=== PATIENT | male | born 1950 | race Caucasian/White ===

== ENCOUNTER 2016-09-05 19:46 | Emergency (ER) | payer OTHER ==
[~2016-09-05] VITALS: Ht 175.3 cm; Wt 69.8 kg
[2016-09-05] MEDS ORDERED: ROBITUSSIN AC,T10 ML PO (21:11)
[2016-09-05] MEDS ORDERED: ZITHROMAX Z-PA250 MG PO (21:11)
[2016-09-05] MEDS ORDERED: MEDROL DOSEPAK4 MG PO (21:11)
[2016-09-05 22:00] VITALS: BP 145/75
== END 2016-09-05 22:11 | disposition home or self-care (01) ==
LOC: EXP 19:46 → EME 19:46 → EXP 22:11
DX: J20.9 Acute bronchitis, unspecified (principal); F17.200 Nicotine dependence, unspecified, uncomplicated
CPT/HCPCS: 71020; 99281; 99284

== ENCOUNTER 2016-10-09 19:18 | Emergency (ER) | payer OTHER ==
[~2016-10-09] VITALS: Ht 175.3 cm; Wt 54.5 kg
[~2016-10-09 19:18] MED LIST: MEDROL DOSEPAK4 MG PO; ROBITUSSIN AC,T10 ML PO; ZITHROMAX Z-PA250 MG PO
[2016-10-09 19:45] LABS: ADD MIUA? YES; BILIRUBIN NEGATIVE; BLOOD SMALL; COLOR YELLOW ((YELLOW)); GLUCOSE (STRIP) NEGATIVE; KETONES 20; LEUKOCYTES NEGATIVE; NITRITE NEGATIVE; PROTEIN (STRIP) 30; SPECIFIC GRAVITY 1.027 (1.000-1.030)
[2016-10-09 19:49] LABS: HEMATOCRIT 43.7 % (38.0-50.0); MCH 30.3 PG (29.0-34.0); MCHC 32.7 G/DL (30.0-36.0); MCV 92.6 FL (86-99); MEAN PLAT.VOLUME 9.9 uM^3 (9.0-12.4); PLATELET COUNT 201 K/uL (156-360); RBC DIS.WIDTH-CV 12.6 % (11.8-14.6); RBC DIS.WIDTH-SD 43.4 % (39-53); RED BLOOD COUNT 4.72 M/uL (4.00-5.50); WHITE BLOOD COUNT 6.8 K/uL (4.1-10.2)
[2016-10-09 19:57] LABS: BACTERIA NONE SEEN /HPF; EPITHELIAL CELLS RARE /HPF; GRANULAR CASTS 0-5 /LPF; HYALINE CASTS 0-5 /LPF; MUCUS TRACE /LPF; UCUL ADDED? NO; WHITE BLOOD CELLS 0-5 /HPF (0-5)
[2016-10-09 20:03] LABS: CHLORIDE 108 mEq/L (99-109); POTASSIUM 3.4 mEq/L (3.7-5.4); SODIUM 141 mEq/L (136-147)
[2016-10-09 20:06] LABS: GLUCOSE 100 mg/dL (70-99)
[2016-10-09 20:07] LABS: ANION GAP 10 MEQ/L (2-14); TOTAL BILIRUBIN 0.3 mg/dL (0.0-1.0)
[2016-10-09 20:09] LABS: ALKALINE PHOSPHATASE 73 IU/L (3-129); GFR ESTIMATE (CALCULATED) > 59 mL/min/
[2016-10-09 20:10] LABS: UREA NITROGEN (BUN) 19 mg/dL (9-23)
[2016-10-09 20:40] LABS: LIPASE 14 U/L (1.0-51.0)
[2016-10-09 20:53] LABS: MAGNESIUM 2.4 mg/dL (1.3-2.7)
[2016-10-09 21:10] LABS: INTACT PARATHYROID HORMONE 60 pg/mL (10-69)
[2016-10-09] MEDS ORDERED: NAPROSYN375 MG PO (22:28)
[2016-10-09 23:12] VITALS: BP 148/88
== END 2016-10-09 23:13 | disposition home or self-care (01) ==
LOC: EME 19:18
PROVIDERS: Emergency Medicine
DX: E83.52 Hypercalcemia (principal); R10.32 Left lower quadrant pain; S33.5XXA Sprain of ligaments of lumbar spine, initial encounter; X58.XXXA Exposure to other specified factors, initial encounter; Y93.9 Activity, unspecified; J44.9 Chronic obstructive pulmonary disease, unspecified; F17.200 Nicotine dependence, unspecified, uncomplicated; R31.9 Hematuria, unspecified
CPT/HCPCS: 74176; 80053; 81003; 82330; 83690; 83735; 83970; 84100; 84443; 85027; 99281; 99285; J1885; J7030

== ENCOUNTER 2016-10-10 15:38 | Emergency (ER) | payer OTHER ==
[~2016-10-10] VITALS: Ht 175.3 cm; Wt 67.3 kg
[~2016-10-10 15:38] MED LIST changes: +NAPROSYN375 MG PO
[2016-10-10 16:55] LABS: ADD MIUA? NO; BILIRUBIN NEGATIVE; BLOOD NEGATIVE; COLOR YELLOW ((YELLOW)); GLUCOSE (STRIP) NEGATIVE; KETONES 20; LEUKOCYTES NEGATIVE; NITRITE NEGATIVE; PROTEIN (STRIP) NEGATIVE; SPECIFIC GRAVITY 1.011 (1.000-1.030); UROBILINOGEN 0.2 MG/DL (0.2-1.0)
[2016-10-10 16:56] LABS: HEMATOCRIT 43.8 % (38.0-50.0); MCH 29.8 PG (29.0-34.0); MCHC 32.2 G/DL (30.0-36.0); MCV 92.6 FL (86-99); MEAN PLAT.VOLUME 9.7 uM^3 (9.0-12.4); PLATELET COUNT 163 K/uL (156-360); RBC DIS.WIDTH-CV 12.6 % (11.8-14.6); RBC DIS.WIDTH-SD 43.1 % (39-53); RED BLOOD COUNT 4.73 M/uL (4.00-5.50); WHITE BLOOD COUNT 5.4 K/uL (4.1-10.2)
[2016-10-10 17:04] LABS: AMPHETAMINE PRESUMPTIVE POSITIVE (500 ng/mL); BARBITURATES NEGATIVE (200 ng/mL); BENZODIAZEPINES NEGATIVE (150 ng/mL); COCAINE NEGATIVE (150 ng/mL); INTERNAL CONTROLS VALID? YES; METHADONE NEGATIVE (200 ng/mL); METHAMPHETAMINE NEGATIVE (500 ng/mL); OPIATES (MORPHINE) NEGATIVE (100 ng/mL); OXYCODONE NEGATIVE (100 ng/mL); PHENCYCLIDINE NEGATIVE (25 ng/mL); PROPOXYPHENE NEGATIVE (300 ng/mL); THC CANNABINOIDS NEGATIVE (50 ng/mL); TRICYCLIC ANTIDEPRESSANTS NEGATIVE (300 ng/mL)
[2016-10-10 17:05] LABS: ADD MEDTOX COMMENT Y
[2016-10-10 17:06] LABS: CHLORIDE 108 mEq/L (99-109); POTASSIUM 3.2 mEq/L (3.7-5.4); SODIUM 140 mEq/L (136-147)
[2016-10-10 17:08] LABS: GLUCOSE 84 mg/dL (70-99)
[2016-10-10 17:09] LABS: ANION GAP 9 MEQ/L (2-14)
[2016-10-10 17:10] LABS: TOTAL BILIRUBIN 0.4 mg/dL (0.0-1.0)
[2016-10-10 17:11] LABS: SERUM ETHYL ALCOHOL < 10 mg/dL
[2016-10-10 17:12] LABS: ALKALINE PHOSPHATASE 64 IU/L (3-129); GFR ESTIMATE (CALCULATED) > 59 mL/min/
[2016-10-10 17:13] LABS: UREA NITROGEN (BUN) 15 mg/dL (9-23)
[2016-10-10 18:21] LABS: INTACT PARATHYROID HORMONE 87 pg/mL (10-69)
[2016-10-11 02:17] LABS: CHLORIDE 112 mEq/L (99-109); POTASSIUM 3.8 mEq/L (3.7-5.4); SODIUM 140 mEq/L (136-147)
[2016-10-11 02:19] LABS: GLUCOSE 81 mg/dL (70-99)
[2016-10-11 02:20] LABS: ANION GAP 5 MEQ/L (2-14)
[2016-10-11 02:23] LABS: GFR ESTIMATE (CALCULATED) > 59 mL/min/
[2016-10-11 02:24] LABS: UREA NITROGEN (BUN) 12 mg/dL (9-23)
[2016-10-11 05:05] VITALS: BP 112/70
== END 2016-10-11 05:06 ==
LOC: EME 15:38
PROVIDERS: Emergency Medicine
DX: F33.2 Major depressive disorder, recurrent severe without psychotic features (principal); R45.851 Suicidal ideations; E83.52 Hypercalcemia; R41.83 Borderline intellectual functioning; F17.200 Nicotine dependence, unspecified, uncomplicated
CPT/HCPCS: 71020; 80048; 80053; 81003; 82310; 82330; 83970; 84999; 85027; 90837; 93005; 99281; 99285; G0480; J7030

== ENCOUNTER 2016-12-05 02:10 | Inpatient (IN) | payer OTHER ==
[~2016-12-05] VITALS: Ht 175.3 cm; Wt 68.1 kg
[2016-12-05 03:38] LABS: EOSINOPHIL (%) 3.8 % (0-5); EOSINOPHIL COUNT 0.3 K/uL (0-0.3); HEMATOCRIT 48.2 % (38.0-50.0); IMMATURE GRANULOCYTE (%) 0.1 % (0.0-0.7); INSTRUMENT ABS NEUTROPHIL CT 4.7 K/uL; LYMPHOCYTE COUNT 2.2 K/uL (1.0-2.8); MCH 30.1 PG (29.0-34.0); MCV 91.1 FL (86-99); MONOCYTE (%) 6.4 % (3-12); MONOCYTE COUNT 0.5 K/uL (0-0.8); NEUTROPHIL (%) 60.9 % (45-76); NEUTROPHIL COUNT 4.7 K/uL (1.8-6.4); RBC DIS.WIDTH-CV 12.6 % (11.8-14.6); RBC DIS.WIDTH-SD 42.3 % (39-53); RED BLOOD COUNT 5.29 M/uL (4.00-5.50); WHITE BLOOD COUNT 7.7 K/uL (4.1-10.2)
[2016-12-05 04:17] LABS: CHLORIDE 105 mEq/L (99-109); POTASSIUM 3.7 mEq/L (3.7-5.4); SODIUM 139 mEq/L (136-147)
[2016-12-05 04:20] LABS: GLUCOSE 128 mg/dL (70-99)
[2016-12-05 04:21] LABS: ANION GAP 9 MEQ/L (2-14)
[2016-12-05 04:22] LABS: TOTAL BILIRUBIN 0.5 mg/dL (0.0-1.0)
[2016-12-05 04:23] LABS: ALKALINE PHOSPHATASE 74 IU/L (3-129); GFR ESTIMATE (CALCULATED) > 59 mL/min/
[2016-12-05 04:33] LABS: UREA NITROGEN (BUN) 16 mg/dL (9-23)
[2016-12-05 04:37] LABS: PLAT.SUFFICIENCY DECREASED; PLATELET CLUMPS PRESENT - PLATELET COUNTS APPEARS DECREASED
[2016-12-05 07:24] LABS: TROP-I INTERPRETATION POSITIVE; TROPONIN-I 1.25 ng/mL (0.0-0.30)
[2016-12-05 08:30] VITALS: BP 139/73
[2016-12-05 08:48] LABS: INTACT PARATHYROID HORMONE 40 pg/mL (10-69)
[2016-12-05 09:46] LABS: PROTHROMBIN TIME 10.3 (9.2-11.2); PTT 27.4 (25-32)
[2016-12-05 12:25] VITALS: BP 115/72
[2016-12-05 12:55] LABS: TROP-I INTERPRETATION NEGATIVE; TROPONIN-I < 0.01 ng/mL (0.0-0.30)
[2016-12-05 16:16] VITALS: BP 103/57
[2016-12-05] MEDS ORDERED: LEXAPRO10 MG PO (16:47)
[2016-12-05] MEDS ORDERED: MELATIN3 MG PO (16:47)
[2016-12-05 17:11] LABS: ADD MIUA? NO; BILIRUBIN NEGATIVE; BLOOD NEGATIVE; COLOR YELLOW ((YELLOW)); GLUCOSE (STRIP) >=500; KETONES NEGATIVE; LEUKOCYTES NEGATIVE; NITRITE NEGATIVE; PROTEIN (STRIP) NEGATIVE; SPECIFIC GRAVITY 1.014 (1.000-1.030); UCUL ADDED? NO; UROBILINOGEN 0.2 MG/DL (0.2-1.0)
[2016-12-05 19:48] VITALS: BP 117/71
[2016-12-05 23:05] VITALS: BP 104/59
[2016-12-06 04:50] VITALS: BP 142/78
[2016-12-06 06:10] LABS: HEMATOCRIT 39.6 % (38.0-50.0); MCH 30.2 PG (29.0-34.0); MCHC 32.8 G/DL (30.0-36.0); MCV 92.1 FL (86-99); MEAN PLAT.VOLUME 10.6 uM^3 (9.0-12.4); PLATELET COUNT 132 K/uL (156-360); RBC DIS.WIDTH-CV 12.9 % (11.8-14.6); RBC DIS.WIDTH-SD 43.8 % (39-53); WHITE BLOOD COUNT 12.7 K/uL (4.1-10.2)
[2016-12-06 06:36] LABS: ANION GAP 4 MEQ/L (2-14); CHLORIDE 113 MEQ/L (99-109); GFR ESTIMATE (CALCULATED) > 59 mL/min/; GLUCOSE 134 mg/dL (70-99); SAMPLE HEMOLYSIS CHECK 0; SAMPLE ICTERIC CHECK 0; SAMPLE LIPEMIA CHECK 0; SODIUM 139 MEQ/L (136-147); UREA NITROGEN (BUN) 15 mg/dL (9-23)
[2016-12-06 06:41] LABS: POTASSIUM 4.5 MEQ/L (3.7-5.4)
[2016-12-06 07:25] VITALS: BP 124/73
[2016-12-06 11:48] VITALS: BP 135/87
[2016-12-06 16:05] VITALS: BP 131/76
[2016-12-06 20:03] VITALS: BP 120/71
[2016-12-07] VITALS (8 sets, daily range): BP systolic 113–169; BP diastolic 63–97
[2016-12-07 05:51] LABS: EOSINOPHIL (%) 0.1 % (0-5); HEMATOCRIT 39.2 % (38.0-50.0); IMMATURE GRANULOCYTE (%) 0.6 % (0.0-0.7); IMMATURE GRANULOCYTE COUNT 0.1 K/uL; INSTRUMENT ABS NEUTROPHIL CT 7.8 K/uL; LYMPHOCYTE COUNT 1.7 K/uL (1.0-2.8); MCH 30.6 PG (29.0-34.0); MCHC 32.9 G/DL (30.0-36.0); MCV 93.1 FL (86-99); MEAN PLAT.VOLUME 10.5 uM^3 (9.0-12.4); MONOCYTE (%) 6.8 % (3-12); MONOCYTE COUNT 0.7 K/uL (0-0.8); NEUTROPHIL (%) 75.8 % (45-76); NEUTROPHIL COUNT 7.8 K/uL (1.8-6.4); PLATELET COUNT 134 K/uL (156-360); RBC DIS.WIDTH-CV 13.1 % (11.8-14.6); RED BLOOD COUNT 4.21 M/uL (4.00-5.50); WHITE BLOOD COUNT 10.2 K/uL (4.1-10.2)
[2016-12-07 06:41] LABS: ANION GAP 2 MEQ/L (2-14); CHLORIDE 113 MEQ/L (99-109); GFR ESTIMATE (CALCULATED) > 59 mL/min/; GLUCOSE 118 mg/dL (70-99); POTASSIUM 4.1 MEQ/L (3.7-5.4); SAMPLE HEMOLYSIS CHECK 0; SAMPLE ICTERIC CHECK 0; SAMPLE LIPEMIA CHECK 0; SODIUM 139 MEQ/L (136-147); UREA NITROGEN (BUN) 15 mg/dL (9-23)
[2016-12-07 17:08] LABS: UR CALCIUM CONCENTRATION < 5.0 MG/DL; UR CREATININE CONCENTRATION 23.3 MG/DL
[2016-12-08 03:30] VITALS: BP 126/70
[2016-12-08 04:28] VITALS: BP 157/79
[2016-12-08 06:58] LABS: HEMATOCRIT 40.6 % (38.0-50.0); MCH 30.4 PG (29.0-34.0); MCHC 32.8 G/DL (30.0-36.0); MCV 92.9 FL (86-99); MEAN PLAT.VOLUME 10.6 uM^3 (9.0-12.4); PLATELET COUNT 123 K/uL (156-360); RBC DIS.WIDTH-CV 12.8 % (11.8-14.6); RED BLOOD COUNT 4.37 M/uL (4.00-5.50); WHITE BLOOD COUNT 6.7 K/uL (4.1-10.2)
[2016-12-08 07:22] LABS: ANION GAP 6 MEQ/L (2-14); CHLORIDE 110 MEQ/L (99-109); GFR ESTIMATE (CALCULATED) > 59 mL/min/; GLUCOSE 113 mg/dL (70-99); SAMPLE HEMOLYSIS CHECK 0; SAMPLE ICTERIC CHECK 0; SAMPLE LIPEMIA CHECK 0; SODIUM 140 MEQ/L (136-147); UREA NITROGEN (BUN) 12 mg/dL (9-23)
[2016-12-08 08:06] VITALS: BP 150/86
[2016-12-08] MEDS ORDERED: VITAMIN D-3 401 EACH PO (11:09)
[2016-12-08] MEDS ORDERED: NEUTRA-PHOS,1 PACKET PO (11:13)
[2016-12-08] MEDS ORDERED: PREDNISONE10 MG PO (11:16)
[2016-12-08 11:27] VITALS: BP 159/92
[2016-12-08] MEDS ORDERED: NICOTINE PATCH1 EAC2 TD (11:35)
[2016-12-09 13:57] LABS: IFE GEL NO. 80-3
[2016-12-10 12:31] LABS: URINE TOTAL PROTEIN < 4 MG/DL (0-10)
== END 2016-12-08 12:50 | disposition home or self-care (01) | DRG 641 ==
LOC: EME 02:10 → EDOF 06:00 → 5SOUTH 07:38 → EDOF 07:38 → 4EAST 08:17 → 5SOUTH 12-07 01:38
PROVIDERS: Emergency Medicine; Hospitalist; Internal Medicine; Nurse Practitioner Family
DX: E83.52 Hypercalcemia (principal); J44.1 Chronic obstructive pulmonary disease with (acute) exacerbation; R45.851 Suicidal ideations; F17.210 Nicotine dependence, cigarettes, uncomplicated; E83.39 Other disorders of phosphorus metabolism; E55.9 Vitamin D deficiency, unspecified; F32.9 Major depressive disorder, single episode, unspecified; I10 Essential (primary) hypertension
CPT/HCPCS: 71020; 78072; 80048; 80053; 80069; 81003; 81050; 82040; 82306; 82330; 82340; 82570; 83970; 84100; 84484; 85025; 85027; 85610; 85730; 86334; 86335; 87070; 87205; 93005; 94644; 99202; 99281; 99285; A9500; A9512; J1940; J2430; J2930; J7030; J7050; J7512

== ENCOUNTER 2017-01-31 21:12 | Emergency (ER) | payer OTHER ==
[~2017-01-31] VITALS: Ht 177.8 cm; Wt 63.4 kg
[~2017-01-31 21:12] MED LIST changes: +LEXAPRO10 MG PO; +MELATIN3 MG PO; +NEUTRA-PHOS,1 PACKET PO; +NICOTINE PATCH1 EAC2 TD; +PREDNISONE10 MG PO; +VITAMIN D-3 401 EACH PO
[2017-01-31] MEDS ORDERED: LEXAPRO10 MG PO (22:06)
[2017-01-31 22:26] VITALS: BP 148/105
== END 2017-01-31 22:27 | disposition home or self-care (01) ==
LOC: EME 21:12
DX: F32.9 Major depressive disorder, single episode, unspecified (principal); Z76.0 Encounter for issue of repeat prescription; I10 Essential (primary) hypertension; F17.200 Nicotine dependence, unspecified, uncomplicated; Z85.038 Personal history of other malignant neoplasm of large intestine
CPT/HCPCS: 99281; 99283

== ENCOUNTER 2017-02-18 20:31 | Observation (INO) | payer OTHER ==
[~2017-02-18] VITALS: Ht 175.3 cm; Wt 67.5 kg
[2017-02-18 21:07] LABS: ADD MIUA? NO; BILIRUBIN NEGATIVE; BLOOD NEGATIVE; COLOR YELLOW ((YELLOW)); GLUCOSE (STRIP) NEGATIVE; KETONES NEGATIVE; LEUKOCYTES NEGATIVE; NITRITE NEGATIVE; PROTEIN (STRIP) NEGATIVE; UCUL ADDED? NO
[2017-02-18 21:19] LABS: MCH 30.8 PG (29.0-34.0); MCHC 33.2 G/DL (30.0-36.0); MCV 92.8 FL (86-99); PLATELET COUNT 159 K/uL (156-360); RBC DIS.WIDTH-CV 13.1 % (11.8-14.6); RBC DIS.WIDTH-SD 45.1 % (39-53); RED BLOOD COUNT 4.42 M/uL (4.00-5.50); WHITE BLOOD COUNT 8.2 K/uL (4.1-10.2)
[2017-02-18 21:29] LABS: CHLORIDE 111 mEq/L (99-109); SODIUM 143 mEq/L (136-147)
[2017-02-18 21:31] LABS: GLUCOSE 98 mg/dL (70-99)
[2017-02-18 21:32] LABS: ANION GAP 5 MEQ/L (2-14)
[2017-02-18 21:33] LABS: TOTAL BILIRUBIN 0.3 mg/dL (0.0-1.0)
[2017-02-18 21:34] LABS: ALKALINE PHOSPHATASE 63 IU/L (3-129)
[2017-02-18 21:35] LABS: GFR ESTIMATE (CALCULATED) > 59 mL/min/
[2017-02-18 21:36] LABS: UREA NITROGEN (BUN) 13 mg/dL (9-23)
[2017-02-18 23:10] LABS: MAGNESIUM 2.6 mg/dL (1.3-2.7)
[2017-02-18 23:17] LABS: LIPASE 16 U/L (1.0-51.0)
[2017-02-19] MEDS ORDERED: PRINIVIL20 MG PO (03:49)
[2017-02-19 04:58] VITALS: BP 132/81
[2017-02-19 07:43] LABS: INTACT PARATHYROID HORMONE 165 pg/mL (10-69)
[2017-02-19 08:38] VITALS: BP 128/72
[2017-02-19 12:34] VITALS: BP 131/65
[2017-02-19 13:53] LABS: ANION GAP 2 MEQ/L (2-14); CHLORIDE 110 MEQ/L (99-109); GFR ESTIMATE (CALCULATED) > 59 mL/min/; GLUCOSE 106 mg/dL (70-99); POTASSIUM 4.6 MEQ/L (3.7-5.4); SAMPLE HEMOLYSIS CHECK 0; SAMPLE ICTERIC CHECK 0; SAMPLE LIPEMIA CHECK 0; SODIUM 138 MEQ/L (136-147); UREA NITROGEN (BUN) 13 mg/dL (9-23)
[2017-02-19 16:00] VITALS: BP 116/66
[2017-02-19 19:00] VITALS: BP 126/79
[2017-02-20 00:14] VITALS: BP 133/75
[2017-02-20 04:17] VITALS: BP 134/76
[2017-02-20 07:57] VITALS: BP 131/83
[2017-02-20 10:01] LABS: ANION GAP 2 MEQ/L (2-14); CHLORIDE 109 MEQ/L (99-109); GFR ESTIMATE (CALCULATED) > 59 mL/min/; GLUCOSE 94 mg/dL (70-99); POTASSIUM 4.1 MEQ/L (3.7-5.4); SAMPLE HEMOLYSIS CHECK 0; SAMPLE ICTERIC CHECK 0; SAMPLE LIPEMIA CHECK 0; SODIUM 139 MEQ/L (136-147); UREA NITROGEN (BUN) 13 mg/dL (9-23)
[2017-02-20 12:06] VITALS: BP 124/68
[2017-02-20 16:12] VITALS: BP 139/84
[2017-02-20] MEDS ORDERED: NAPROSYN375 MG PO (16:14)
[2017-02-20] MEDS ORDERED: TYLENOL EXTRA500 MG PO (16:17)
[2017-02-20] MEDS ORDERED: [UNRECOGNIZED DRUG - OTHER] (16:20)
[2017-02-20 20:00] VITALS: BP 141/72
[2017-02-21] VITALS: BP 138/83
[2017-02-21 08:32] LABS: ANION GAP 4 MEQ/L (2-14); CHLORIDE 112 MEQ/L (99-109); GFR ESTIMATE (CALCULATED) > 59 mL/min/; GLUCOSE 102 mg/dL (70-99); POTASSIUM 4.5 MEQ/L (3.7-5.4); SAMPLE HEMOLYSIS CHECK 0; SAMPLE ICTERIC CHECK 0; SAMPLE LIPEMIA CHECK 0; SODIUM 142 MEQ/L (136-147); UREA NITROGEN (BUN) 14 mg/dL (9-23)
[2017-02-21 08:45] VITALS: BP 158/84
[2017-02-21 10:18] VITALS: BP 169/83
[2017-02-21] MEDS ORDERED: TAMSULOSIN HCL0.4 MG PO (11:00)
== END 2017-02-21 14:04 | disposition home or self-care (01) ==
LOC: EME 20:31 → 5WEST 02-19 02:37 → EDOF 02-19 02:37 → ENRESERV 02-19 02:38 → 5WEST 02-19 04:09
PROVIDERS: Emergency Medicine; Internal Medicine; Nurse Practitioner Family
DX: E21.0 Primary hyperparathyroidism (principal); E55.9 Vitamin D deficiency, unspecified; E83.39 Other disorders of phosphorus metabolism; J44.9 Chronic obstructive pulmonary disease, unspecified; N40.0 Benign prostatic hyperplasia without lower urinary tract symptoms; I70.202 Unspecified atherosclerosis of native arteries of extremities, left leg; M25.552 Pain in left hip; N20.0 Calculus of kidney; F17.200 Nicotine dependence, unspecified, uncomplicated; I10 Essential (primary) hypertension; Z85.038 Personal history of other malignant neoplasm of large intestine; F32.9 Major depressive disorder, single episode, unspecified; E86.0 Dehydration
CPT/HCPCS: 71010; 74177; 80048; 80053; 81003; 82308 90; 83690; 83735; 83970; 84100; 85027; 93005; 99281; 99285; G0103; G0378; J1650; J2430; J7030; J7040; J7050

== ENCOUNTER 2017-02-22 18:43 | Emergency (ER) | payer OTHER ==
[~2017-02-22] VITALS: Ht 175.3 cm; Wt 64.5 kg
[~2017-02-22 18:43] MED LIST changes: +PRINIVIL20 MG PO; +TAMSULOSIN HCL0.4 MG PO; +TYLENOL EXTRA500 MG PO; +[UNRECOGNIZED DRUG - OTHER]
[2017-02-22 22:15] LABS: EOSINOPHIL (%) 6.4 % (0-5); EOSINOPHIL COUNT 0.3 K/uL (0-0.3); HEMATOCRIT 38.2 % (38.0-50.0); IMMATURE GRANULOCYTE (%) 0.4 % (0.0-0.7); INSTRUMENT ABS NEUTROPHIL CT 2.4 K/uL; LYMPHOCYTE COUNT 1.4 K/uL (1.0-2.8); MCH 30.6 PG (29.0-34.0); MCHC 32.7 G/DL (30.0-36.0); MCV 93.4 FL (86-99); MEAN PLAT.VOLUME 9.8 uM^3 (9.0-12.4); MONOCYTE (%) 8.1 % (3-12); MONOCYTE COUNT 0.4 K/uL (0-0.8); NEUTROPHIL (%) 53.7 % (45-76); NEUTROPHIL COUNT 2.4 K/uL (1.8-6.4); PLATELET COUNT 132 K/uL (156-360); RBC DIS.WIDTH-CV 13.1 % (11.8-14.6); RED BLOOD COUNT 4.09 M/uL (4.00-5.50); WHITE BLOOD COUNT 4.6 K/uL (4.1-10.2)
[2017-02-22 22:23] LABS: CHLORIDE 109 mEq/L (99-109); POTASSIUM 3.8 mEq/L (3.7-5.4); SODIUM 141 mEq/L (136-147)
[2017-02-22 22:25] LABS: GLUCOSE 88 mg/dL (70-99)
[2017-02-22 22:26] LABS: ANION GAP 8 MEQ/L (2-14)
[2017-02-22 22:29] LABS: ALKALINE PHOSPHATASE 70 IU/L (3-129); GFR ESTIMATE (CALCULATED) > 59 mL/min/
[2017-02-22 22:30] LABS: UREA NITROGEN (BUN) 13 mg/dL (9-23)
[2017-02-22 22:32] LABS: TOTAL BILIRUBIN 0.4 mg/dL (0.0-1.0)
[2017-02-22 23:33] LABS: ADD MIUA? NO; BILIRUBIN NEGATIVE; BLOOD NEGATIVE; COLOR YELLOW ((YELLOW)); GLUCOSE (STRIP) NEGATIVE; KETONES 5; LEUKOCYTES NEGATIVE; NITRITE NEGATIVE; PROTEIN (STRIP) NEGATIVE; SPECIFIC GRAVITY 1.021 (1.000-1.030); UCUL ADDED? NO; UROBILINOGEN 0.2 MG/DL (0.2-1.0)
[2017-02-23] MEDS ORDERED: PERCOCET 5/31 TABLET PO (00:48)
[2017-02-23] MEDS ORDERED: CILOSTAZOL100 MG PO (00:48)
[2017-02-23 01:17] VITALS: BP 120/87
== END 2017-02-23 01:18 | disposition home or self-care (01) ==
LOC: EME 18:43
PROVIDERS: Emergency Medicine
DX: I73.9 Peripheral vascular disease, unspecified (principal); E83.52 Hypercalcemia; M54.5 Low back pain; J44.9 Chronic obstructive pulmonary disease, unspecified; I10 Essential (primary) hypertension; F17.200 Nicotine dependence, unspecified, uncomplicated; Z85.038 Personal history of other malignant neoplasm of large intestine
CPT/HCPCS: 72131; 80053; 81003; 85025; 93926; 99281; 99284

== ENCOUNTER 2017-03-03 19:16 | Emergency (ER) | payer OTHER ==
[~2017-03-03] VITALS: Ht 175.3 cm; Wt 62.9 kg
[~2017-03-03 19:16] MED LIST changes: +CILOSTAZOL100 MG PO; +PERCOCET 5/31 TABLET PO
[2017-03-03] MEDS ORDERED: FLEXERIL10 MG PO (22:07)
[2017-03-03] MEDS ORDERED: MOTRIN600 MG PO (22:07)
[2017-03-03] MEDS ORDERED: LIDODERM 5% P1 PATCH TD (22:07)
[2017-03-03 22:59] VITALS: BP 144/88
== END 2017-03-03 23:00 | disposition home or self-care (01) ==
LOC: EME 19:16
DX: M54.5 Low back pain (principal); F17.200 Nicotine dependence, unspecified, uncomplicated
CPT/HCPCS: 99281; 99284; J1885

== ENCOUNTER → 2017-03-28 | Outpatient (CLI) | payer MEDICARE ==
[~2017-03-28] MED LIST changes: +FLEXERIL10 MG PO; +LIDODERM 5% P1 PATCH TD; +MOTRIN600 MG PO; +XANAX1 MG PO; -[UNRECOGNIZED DRUG - OTHER]
== END | disposition home or self-care (01) ==
LOC: CDC 11:45
DX: Z01.810 Encounter for preprocedural cardiovascular examination (principal)
CPT/HCPCS: 93000

== ENCOUNTER 2017-03-29 13:06 | Observation (INO) | payer OTHER ==
[~2017-03-29] VITALS: Ht 175.3 cm; Wt 63.3 kg
[~2017-03-29 13:06] MED LIST changes: -XANAX1 MG PO
[2017-03-29 13:59] LABS: EOSINOPHIL (%) 5.3 % (0-5); EOSINOPHIL COUNT 0.4 K/uL (0-0.3); HEMATOCRIT 42.4 % (38.0-50.0); IMMATURE GRANULOCYTE (%) 0.3 % (0.0-0.7); INSTRUMENT ABS NEUTROPHIL CT 4.6 K/uL; LYMPHOCYTE COUNT 2.2 K/uL (1.0-2.8); MCH 31.1 PG (29.0-34.0); MCV 94.2 FL (86-99); MEAN PLAT.VOLUME 10.3 uM^3 (9.0-12.4); MONOCYTE (%) 6.3 % (3-12); MONOCYTE COUNT 0.5 K/uL (0-0.8); NEUTROPHIL (%) 59.1 % (45-76); NEUTROPHIL COUNT 4.6 K/uL (1.8-6.4); PLATELET COUNT 156 K/uL (156-360); RBC DIS.WIDTH-CV 12.6 % (11.8-14.6); RBC DIS.WIDTH-SD 43.9 % (39-53); WHITE BLOOD COUNT 7.8 K/uL (4.1-10.2)
[2017-03-29 14:07] LABS: CHLORIDE 108 mEq/L (99-109); POTASSIUM 4.3 mEq/L (3.7-5.4); SODIUM 141 mEq/L (136-147)
[2017-03-29 14:08] LABS: MAGNESIUM 2.8 mg/dL (1.3-2.7)
[2017-03-29 14:09] LABS: GLUCOSE 93 mg/dL (70-99)
[2017-03-29 14:11] LABS: ANION GAP 7 MEQ/L (2-14); TOTAL BILIRUBIN 0.3 mg/dL (0.0-1.0)
[2017-03-29 14:13] LABS: ALKALINE PHOSPHATASE 57 IU/L (3-129); GFR ESTIMATE (CALCULATED) > 59 mL/min/
[2017-03-29 14:14] LABS: UREA NITROGEN (BUN) 16 mg/dL (9-23)
[2017-03-29 14:16] LABS: CREATINE KINASE 51 IU/L (1-294); TOTAL CK 51 IU/L (1-294)
[2017-03-29 14:19] LABS: TROP-I INTERPRETATION NEGATIVE; TROPONIN-I 0.01 ng/mL (0.0-0.30)
[2017-03-29 14:22] LABS: CK-MB 0.9 ng/mL (0.0-4.9)
[2017-03-29] MEDS ORDERED: XANAX1 MG PO (16:30)
[2017-03-29 17:43] VITALS: BP 140/77
[2017-03-29 19:00] VITALS: BP 132/73
[2017-03-29 21:06] LABS: TROP-I INTERPRETATION NEGATIVE; TROPONIN-I 0.01 ng/mL (0.0-0.30)
[2017-03-30 00:05] VITALS: BP 114/68
[2017-03-30 03:26] LABS: TROP-I INTERPRETATION NEGATIVE; TROPONIN-I < 0.01 ng/mL (0.0-0.30)
[2017-03-30 04:32] VITALS: BP 117/70
[2017-03-30 05:22] LABS: HEMATOCRIT 39.4 % (38.0-50.0); MCH 31.1 PG (29.0-34.0); MCHC 32.5 G/DL (30.0-36.0); MCV 95.6 FL (86-99); MEAN PLAT.VOLUME 10.6 uM^3 (9.0-12.4); PLATELET COUNT 137 K/uL (156-360); RBC DIS.WIDTH-CV 12.9 % (11.8-14.6); RBC DIS.WIDTH-SD 45.5 % (39-53); RED BLOOD COUNT 4.12 M/uL (4.00-5.50); WHITE BLOOD COUNT 5.2 K/uL (4.1-10.2)
[2017-03-30 05:48] LABS: ANION GAP 3 MEQ/L (2-14); CHLORIDE 108 MEQ/L (99-109); GFR ESTIMATE (CALCULATED) > 59 mL/min/; GLUCOSE 91 mg/dL (70-99); POTASSIUM 4.2 MEQ/L (3.7-5.4); SAMPLE HEMOLYSIS CHECK 0; SAMPLE ICTERIC CHECK 0; SAMPLE LIPEMIA CHECK 0; SODIUM 137 MEQ/L (136-147); UREA NITROGEN (BUN) 16 mg/dL (9-23)
[2017-03-30 07:30] VITALS: BP 117/69
[2017-03-30 12:26] VITALS: BP 130/83
[2017-03-30] MEDS ORDERED: TAMSULOSIN HCL0.4 MG PO (14:55)
[2017-03-30 15:51] VITALS: BP 111/73
== END 2017-03-30 17:43 | disposition home or self-care (01) ==
LOC: EME 13:06 → 5WEST 16:08 → EDOF 16:08 → ENRESERV 16:18 → 5WEST 17:41
PROVIDERS: Emergency Medicine; Nurse Practitioner Adult Health
DX: R07.89 Other chest pain (principal); E21.0 Primary hyperparathyroidism; J44.9 Chronic obstructive pulmonary disease, unspecified; I10 Essential (primary) hypertension; F17.210 Nicotine dependence, cigarettes, uncomplicated; I73.9 Peripheral vascular disease, unspecified; R97.20 Elevated prostate specific antigen [PSA]; E55.9 Vitamin D deficiency, unspecified; Z79.82 Long term (current) use of aspirin; Z85.038 Personal history of other malignant neoplasm of large intestine; I25.2 Old myocardial infarction; N40.0 Benign prostatic hyperplasia without lower urinary tract symptoms
CPT/HCPCS: 71020; 71275; 78452; 80048; 80053; 82330; 82550; 82553; 83519 90; 83735; 83883 90; 84100; 84484; 85025; 85027; 93005; 93017; 99281; 99285; A9500; G0378; J2430; J2785; J7030; J7050

== ENCOUNTER 2017-05-09 17:55 | Emergency (ER) | payer OTHER ==
[~2017-05-09] VITALS: Ht 175.3 cm; Wt 62.5 kg
[~2017-05-09 17:55] MED LIST changes: +XANAX1 MG PO
[2017-05-09] MEDS ORDERED: TYLENOL WITH C1 EACH PO (22:41)
[2017-05-09 23:01] VITALS: BP 113/73
== END 2017-05-09 23:09 | disposition home or self-care (01) ==
LOC: EME 17:55
DX: G89.18 Other acute postprocedural pain (principal); R10.32 Left lower quadrant pain; J44.9 Chronic obstructive pulmonary disease, unspecified; I10 Essential (primary) hypertension; K21.9 Gastro-esophageal reflux disease without esophagitis; F31.9 Bipolar disorder, unspecified; F32.9 Major depressive disorder, single episode, unspecified; Z85.038 Personal history of other malignant neoplasm of large intestine; Z87.891 Personal history of nicotine dependence
CPT/HCPCS: 93926; 99281; 99285

== ENCOUNTER 2017-06-21 18:44 | Inpatient (IN) | payer OTHER ==
[~2017-06-21] VITALS: Ht 175.3 cm; Wt 53.0 kg
[~2017-06-21 18:44] MED LIST changes: +TYLENOL WITH C1 EACH PO
[2017-06-21 19:51] LABS: HEMATOCRIT 44.7 % (38.0-50.0); HEMOGLOBIN 14.8 G/DL (12.5-16.6); MCH 30.7 PG (29.0-34.0); MCHC 33.1 G/DL (30.0-36.0); MCV 92.7 FL (86-99); PLATELET COUNT 166 K/uL (156-360); RBC DIS.WIDTH-CV 12.5 % (11.8-14.6); RBC DIS.WIDTH-SD 43.2 % (39-53); RED BLOOD COUNT 4.82 M/uL (4.00-5.50); WHITE BLOOD COUNT 6.5 K/uL (4.1-10.2)
[2017-06-21 20:10] LABS: CHLORIDE 109 mEq/L (99-109); SODIUM 140 mEq/L (136-147)
[2017-06-21 20:12] LABS: GLUCOSE 133 mg/dL (70-99)
[2017-06-21 20:14] LABS: TROP-I INTERPRETATION NEGATIVE; TROPONIN-I < 0.01 ng/mL (0.0-0.30)
[2017-06-21 20:16] LABS: GFR ESTIMATE (CALCULATED) > 59 mL/min/ (58.99-99999)
[2017-06-21 20:17] LABS: UREA NITROGEN (BUN) 17 mg/dL (9-23)
[2017-06-21 21:56] LABS: ALBUMIN 4.6 g/dL (3.2-4.8)
[2017-06-21 21:58] LABS: TOTAL PROTEIN 7.2 g/dL (6.4-8.3)
[2017-06-21 22:00] LABS: TOTAL BILIRUBIN 0.7 mg/dL (0.0-1.0)
[2017-06-21 22:01] LABS: ALKALINE PHOSPHATASE 64 IU/L (3-129)
[2017-06-21 22:04] LABS: ALT (GPT) 7 IU/L (3-49); AST (GOT) 16 IU/L (2-34); DIRECT BILIRUBIN 0.3 mg/dL (0.0-0.3)
[2017-06-21 22:05] LABS: LIPASE 11 U/L (1.0-51.0)
[2017-06-22] MEDS ORDERED: CYCLOBENZAPRINE10 MG PO (01:02)
[2017-06-22 03:22] LABS: TROP-I INTERPRETATION NEGATIVE; TROPONIN-I < 0.01 ng/mL (0.0-0.30)
[2017-06-22 09:08] LABS: CHLORIDE 114 mEq/L (99-109); POTASSIUM 4.2 mEq/L (3.7-5.4); SODIUM 138 mEq/L (136-147)
[2017-06-22 09:09] LABS: MCH 30.8 PG (29.0-34.0); MCHC 32.9 G/DL (30.0-36.0); MCV 93.8 FL (86-99); RBC DIS.WIDTH-CV 12.6 % (11.8-14.6); RBC DIS.WIDTH-SD 43.1 % (39-53); WHITE BLOOD COUNT 4.6 K/uL (4.1-10.2)
[2017-06-22 09:10] LABS: GLUCOSE 113 mg/dL (70-99)
[2017-06-22 09:13] LABS: CREATININE 0.8 mg/dL (0.6-1.3); GFR ESTIMATE (CALCULATED) > 59 mL/min/ (58.99-99999)
[2017-06-22 09:14] LABS: UREA NITROGEN (BUN) 17 mg/dL (9-23)
[2017-06-22 09:19] LABS: TROP-I INTERPRETATION NEGATIVE; TROPONIN-I < 0.01 ng/mL (0.0-0.30)
[2017-06-22 09:26] LABS: HEMOGLOBIN 11.5 G/DL (12.5-16.6); RED BLOOD COUNT 3.73 M/uL (4.00-5.50)
[2017-06-22 09:41] LABS: PLAT.SUFFICIENCY DECREASED; PLATELET CLUMPS PRESENT - PLATELET COUNTS APPEARS DECREASED
[2017-06-22 09:49] LABS: PLATELET COUNT UNABLE TO REPORT K/uL (156-360)
[2017-06-22 15:56] VITALS: BP 109/72
[2017-06-22 20:28] VITALS: BP 112/58
[2017-06-22 23:16] VITALS: BP 100/60
[2017-06-23 04:13] VITALS: BP 95/55
[2017-06-23 05:56] LABS: HEMATOCRIT 35.6 % (38.0-50.0); HEMOGLOBIN 11.5 G/DL (12.5-16.6); MCH 30.3 PG (29.0-34.0); MCHC 32.3 G/DL (30.0-36.0); MCV 93.9 FL (86-99); RBC DIS.WIDTH-CV 12.6 % (11.8-14.6); RBC DIS.WIDTH-SD 43.6 % (39-53); RED BLOOD COUNT 3.79 M/uL (4.00-5.50); WHITE BLOOD COUNT 3.4 K/uL (4.1-10.2)
[2017-06-23 05:59] LABS: PLATELET COUNT 112 K/uL (156-360)
[2017-06-23 06:23] LABS: CHLORIDE 114 MEQ/L (99-109); CREATININE 0.7 MG/DL (0.6-1.3); GFR ESTIMATE (CALCULATED) > 59 mL/min/ (58.99-99999); GLUCOSE 87 mg/dL (70-99); HDL CHOLESTEROL 29 MG/DL (Desirable>=40); LDL CHOLESTEROL 65 mg/dL (Desirable<100); NON-HDL CHOLESTEROL 83 mg/dL (Desirable<160); POTASSIUM 4.2 MEQ/L (3.7-5.4); SODIUM 140 MEQ/L (136-147); TOTAL CHOLESTEROL 112 mg/dL (Desirable<200); TRIGLYCERIDES 90 MG/DL (Normal: <150); UREA NITROGEN (BUN) 9 mg/dL (9-23)
[2017-06-23 08:47] VITALS: BP 133/67
[2017-06-23 12:00] VITALS: BP 127/51
[2017-06-23 16:12] VITALS: BP 97/56
[2017-06-23 19:47] VITALS: BP 94/52
[2017-06-23 23:04] VITALS: BP 100/59
[2017-06-24 04:15] VITALS: BP 137/72
[2017-06-24] MEDS ORDERED: PANTOPRAZOLE SO40 MG PO (08:36)
[2017-06-24 08:45] VITALS: BP 163/89
== END 2017-06-24 11:01 | disposition home or self-care (01) | DRG 392 ==
LOC: EME 18:44 → EDOF 06-22 01:46 → 4EAST 06-22 01:46 → ENRESERV 06-22 01:49 → 4EAST 06-22 15:41
PROVIDERS: Hospitalist; Internal Medicine Cardiovascular Disease; Physician Assistant
DX: K21.9 Gastro-esophageal reflux disease without esophagitis (principal); K31.1 Adult hypertrophic pyloric stenosis; D61.818 Other pancytopenia; R07.89 Other chest pain; E21.0 Primary hyperparathyroidism; K29.60 Other gastritis without bleeding; J43.9 Emphysema, unspecified; F34.1 Dysthymic disorder; N40.0 Benign prostatic hyperplasia without lower urinary tract symptoms; K44.9 Diaphragmatic hernia without obstruction or gangrene; I73.9 Peripheral vascular disease, unspecified; I10 Essential (primary) hypertension; F31.9 Bipolar disorder, unspecified; F41.8 Other specified anxiety disorders; F17.290 Nicotine dependence, other tobacco product, uncomplicated; E55.9 Vitamin D deficiency, unspecified; Z79.82 Long term (current) use of aspirin; Z85.038 Personal history of other malignant neoplasm of large intestine; Z82.49 Family history of ischemic heart disease and other diseases of the circulatory system; Z80.9 Family history of malignant neoplasm, unspecified
CPT/HCPCS: 70450; 71046; 71275; 74177; 80048; 80061; 80076; 82607; 83690; 84484; 85027; 88305; 88342 TC; 93005; 94640; 94640 76; 99202; 99281; 99285; C9113; J1644; J1885; J2250; J2270; J2370; J2765; J7030; P9047; S0028

== ENCOUNTER 2017-08-21 21:46 | Emergency (ER) | payer OTHER ==
[~2017-08-21] VITALS: Ht 175.3 cm; Wt 58.0 kg
[~2017-08-21 21:46] MED LIST changes: +CYCLOBENZAPRINE10 MG PO; +PANTOPRAZOLE SO40 MG PO
[2017-08-21 22:32] LABS: HEMATOCRIT 40.2 % (38.0-50.0); HEMOGLOBIN 13.5 G/DL (12.5-16.6); MCH 31.7 PG (29.0-34.0); MCHC 33.6 G/DL (30.0-36.0); MCV 94.4 FL (86-99); PLATELET COUNT 144 K/uL (156-360); RBC DIS.WIDTH-CV 12.2 % (11.8-14.6); RBC DIS.WIDTH-SD 42.5 % (39-53); RED BLOOD COUNT 4.26 M/uL (4.00-5.50); WHITE BLOOD COUNT 6.9 K/uL (4.1-10.2)
[2017-08-21 22:43] LABS: CHLORIDE 108 mEq/L (99-109); SODIUM 139 mEq/L (136-147)
[2017-08-21 22:46] LABS: GLUCOSE 96 mg/dL (70-99); TOTAL PROTEIN 6.3 g/dL (6.4-8.3)
[2017-08-21 22:48] LABS: TOTAL BILIRUBIN 0.2 mg/dL (0.0-1.0)
[2017-08-21 22:49] LABS: ALKALINE PHOSPHATASE 71 IU/L (3-129); GFR ESTIMATE (CALCULATED) > 59 mL/min/ (58.99-99999)
[2017-08-21 22:50] LABS: UREA NITROGEN (BUN) 17 mg/dL (9-23)
[2017-08-21 22:51] LABS: AST (GOT) 14 IU/L (2-34)
[2017-08-21 22:52] LABS: ALT (GPT) 8 IU/L (3-49)
[2017-08-21 22:54] LABS: TROP-I INTERPRETATION NEGATIVE; TROPONIN-I 0.03 ng/mL (0.0-0.30)
[2017-08-21 23:41] VITALS: BP 110/76
== END 2017-08-21 23:44 | disposition home or self-care (01) ==
LOC: EME → EDBD 21:46 → EME 21:46
PROVIDERS: Family Medicine
DX: R07.9 Chest pain, unspecified (principal); J44.9 Chronic obstructive pulmonary disease, unspecified; I10 Essential (primary) hypertension; K21.9 Gastro-esophageal reflux disease without esophagitis; F31.9 Bipolar disorder, unspecified; F32.9 Major depressive disorder, single episode, unspecified; Z87.891 Personal history of nicotine dependence; Z85.038 Personal history of other malignant neoplasm of large intestine; Z95.828 Presence of other vascular implants and grafts
CPT/HCPCS: 80053; 84484; 85027; 93005; 99281; 99285